=== PATIENT | female | born 1985 | race Two or more races ===

== ENCOUNTER 2020-01-27 15:43 | Emergency (ER) | payer MEDICAID, OTHER ==
[~2020-01-27] VITALS: Ht 162.6 cm; Wt 64.0 kg
[2020-01-27] MEDS ORDERED: FAMOTIDINE 20MG TABLET PO ONE (16:15)
[2020-01-27] MEDS ORDERED: ONDANSETRON 4MG ODT PO ONE (16:30)
[2020-01-27 16:48] LABS: BASOPHILS % 0.4 % (0.0-2.0); EOSINOPHILS % 0.9 % (0.0-5.0); HEMATOCRIT. 34.8 % (36.0-48.0); LYMPHOCYTES % 18.7 % (20.0-50.0); MEAN CORPUSCULAR HEMOGLOBIN 31.7 pg (28.0-32.0); MEAN PLATELET VOLUME 10.2 fl (7.4-10.4); MONOCYTES % 6.2 % (2.0-8.0); NEUTROPHILS % 73.8 % (40.0-76.0); PLATELET 210 x1000/uL (130-400); RED BLOOD CELL COUNT 3.78 mill/uL (4.2-5.4); RED CELL DISTRIBUTION WIDTH 13.5 % (11.6-14.6)
[2020-01-27 16:55] LABS: CHLORIDE 107 mEq/L (98-107)
[2020-01-27 17:20] LABS: HCG SCREEN NEGATIVE
[2020-01-27 17:45] VITALS: BP 101/52
== END 2020-01-27 17:57 | disposition home or self-care (01) ==
LOC: ER 15:43
DX: R07.2 Precordial pain (principal); R79.89 Other specified abnormal findings of blood chemistry; F41.9 Anxiety disorder, unspecified
CPT/HCPCS: 36415; 71045; 80053; 81025; 83690; 84484; 84703; 85025; 93005; 99285; Q0162